=== PATIENT | female | born 1935 | race Caucasian/White ===

== ENCOUNTER 2023-08-10 07:33 | Outpatient (OUT) | payer MEDICARE, SELFPAY ==
--- NOTE | 2023-08-10 08:05 | NM_ITS ---
The [address] [address] Patient Name: JOSE TILLEY MRN: [id number] date: 1935 Sex: F Assigned Patient Location: [place] Current Patient Location: [place] Accession/Order Number: [id number] Exam Date: 08/10/2023 08:00 Report Date: 08/10/2023 12:30 At the request of: MIRANDA HERNANDEZ Procedure: OK gastric emptying study NUCLEAR MEDICINE GASTRIC EMPTYING SCAN HISTORY: Upper abdominal pain and gastroesophageal reflux. COMPARISON: None. TECHNIQUE: The patient ingested a meal of egg labeled with 1.0 mCi of technetium-99 sulfur colloid and images were performed of the stomach over 4 hours. Gastric retention was calculated. FINDINGS: At one hour, there was 88% gastric retention. The normal range is 30% to 90%. At two hours, there was 53% gastric retention. The normal range 0% to 60%. At four hours, there was 19% gastric retention. The normal range 0% to 10%. OK/OK gastric emptying study IMPRESSION: Normal gastric emptying through 2 hours with delayed gastric emptying at 4 hours. Electronically authenticated by: EDDIE BROWN Date: 08/10/2023 12:30
== END 2023-08-10 07:34 | disposition home or self-care (01) ==
LOC: NM 07:37
PROVIDERS: Family Provider Family Medicine; PCP Family Medicine; Visit Provider Surgery
DX: R10.13 Epigastric pain (principal)
CPT/HCPCS: 78264; A9541